=== PATIENT | male | born 2000 | race Two or more races ===

== ENCOUNTER 2022-10-02 10:07 | Outpatient (AMB) | payer OTHER, SELFPAY ==
--- NOTE | 2022-10-02 11:00 | MHC.PC.OV ---
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 Transferring care from [facility]. Medical records have not been requested and have not received. 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 Patient has history of autism and attention deficit disorder. He comes to the office with his mother. Patient is partially independent, does not prefer to drive. He goes to [facility], [facility] Medical History (Updated 10/03/22 @ 12:27 by Josue Mcarthur MD) ADHD (attention deficit hyperactivity disorder) Autism Scoliosis Surgical History (Updated 10/02/22 @ 11:11 by Lolis Vogt Coleen) History of surgery Family History Mother Mental health disorder Social History Housing: Apartment Alcohol intake: current Alcohol intake frequency: holidays/special occasions only Patient Tobacco Use Status: Never used Tobacco e-Cigarette/Vaping Use: Never Used Second Hand Smoke Exposure: No service: No Current occupational status: disabled Cognitive needs: No Hearing needs: No Vision needs: Yes (glasses) Questionnaire PHQ-9 Over the last 2 weeks, how often have you been bothered by any of the following problems? 1. Little interest or pleasure in doing things: not at all 2. Feeling down, depressed, or hopeless: not at all 3. Trouble falling or staying asleep, or sleeping too much: not at all 4. Feeling tired or having little energy: not at all 5. Poor appetite or overeating: not at all 6. Feeling bad about yourself - or that you are a failure or have let yourself or your family down: not at all 7. Trouble concentrating on things, such as reading the newspaper or watching television: not at all 8. Moving or speaking so slowly that other people could have noticed. Or the opposite - being so fidgety or restless that you have been moving around a lot more than usual: not at all 9. Thoughts that you would be better off or of hurting yourself in some way: not at all Total score: 0 Depression Screening Interpretation: Negative Source: Developed by Drs. Ervin Martínez, Marsha Joseph, Napoleon Cole and colleagues, with an educational jayesh from [employer]. Thrive Questionnaire Date Thrive assessed: 10/02/22 I am a: Patient What is your living situation today?: I have a steady place to live Within the past 12 months, did the food you bought not last and you didn't have the money to get more?: Never true Within the past 12 months, did you worry whether your food would run out before you got money to buy more?: Never true Do you have trouble paying for medicines?: No Do you have trouble getting transportation to medical appointments?: No Do you have trouble paying your heating and electricity bill?: No Do you have trouble taking care of your child, family member or friend?: No Do you have trouble with day-to-day activities such as bathing, preparing meals, shopping, managing finances, etc.?: No Are you currently unemployed and looking for a job?: No Are you interested in more education?: No Currently or been in a relationship where the following occur: no concerns reported AUDIT C Alcohol Use Questionnaire (AUDIT-C) 1. How often do you have a drink containing alcohol?: Monthly or less 2. How many drinks containing alcohol do you have on a typical day when you are drinking?: 1 or 2 Total Score: 1 ELDA-7 AMB Questionnaire ELDA-7 Date ELDA - 7 assessed: 10/02/22 Feeling nervous, anxious, or on edge: 0 = Not at all Not being able to stop or control worryin = Not at all Worrying too much about different things: 0 = Not at all Trouble relaxin = Not at all Being so restless that it is hard to sit still: 0 = Not at all Becoming easily annoyed or irritable: 0 = Not at all Feeling afraid as if something awful might happen: 0 = Not at all Total ELDA-7 score (0-4 normal; 5-9 mild; 10-14 moderate; 15-21 severe): 0 Source: Developed by Drs. Ervin Martínez, Marsha Joseph, Napoleon Cole and colleagues, with an educational jayesh from [employer]. Physical exam (Primary Care) Vital Signs: Last Vital Signs Pulse 81 10/02/22 11:02 BP 100/62 10/02/22 11:02 Pulse Ox 97 10/02/22 11:02 Oxygen Delivery Method Room Air 10/02/22 11:02 BMI result Body Mass Index 21.1 Tobacco/Smoking Status: Tobacco use Status Tobacco use date assessed 10/02/22 10/02/22 11:14 Patient Tobacco Use Status Never used Tobacco 10/02/22 11:14 e-Cigarette/Vaping Use Never Used 10/02/22 11:14 PHQ-9: PHQ-9 Score PHQ-9: Total score 0 10/02/22 11:14 Depression Screening Interpretation: Negative Thrive Assessment: Date of Thrive Assessment Date Thrive assessed 10/02/22 10/02/22 11:14 Currently or been in a relationship where the following occur: no concerns reported Const Other: Alert and oriented. Patient answers questions appropriately but prefers to be silent. General: cooperative, healthy appearing and comfortable HENMT Head: Yes normal to inspection and Yes atraumatic Eyes General: appearance normal, both eyes and all related structures Neck Neck: Yes normal visual inspection and Yes full ROM Chest Chest palpation & inspection: normal inspection of the chest Resp Effort & Inspection: normal respiratory effort Auscultation: clear to auscultation bilaterally Cardio Jugular venous distension: no JVD Palpation: normal PMI Rate: regular rate Heart sounds: S1 normal heart sound present and S2 normal heart sound present GI Palpation (GI): Soft to palpation and No hepatosplenomegaly present Extrem General: Yes normal to inspection and Yes full ROM Assessment and Plan Assessment & Plan (1) ADHD (attention deficit hyperactivity disorder): Code(s): F90.9 - Attention-deficit hyperactivity disorder, unspecified type Plan: Continue Focalin XR as ordered by his provider . (2) Autism: Code(s): F84.0 - Autistic disorder Plan: Condition is stable. (3) Scoliosis: Code(s): M41.9 - Scoliosis, unspecified Plan: Condition is stable. (4) Annual physical exam: Code(s): Z00.00 - Encounter for general adult medical examination without abnormal findings Plan: Blood work has been ordered will call with results. Orders: Orders Basic Metabolic Panel 10/02/22 E78.00 - Pure hypercholesterolemia, unspecified Lipid Panel 10/02/22 E78.00 - Pure hypercholesterolemia, unspecified Liver Panel 10/02/22 E78.00 - Pure hypercholesterolemia, unspecified Thyroid Stimulating Hormone 10/02/22 E78.00 - Pure hypercholesterolemia, unspecified Complete Blood Count no Diff 10/02/22 E78.00 - Pure hypercholesterolemia, unspecified UA and rflx microscopic 10/02/22 E78.00 - Pure hypercholesterolemia, unspecified Coding Level of Care Code New Pt Prev Care 18-39yr([id number] Diagnoses ADHD (attention deficit hyperactivity disorder) F90.9 Autism F84.0 Scoliosis M41.9 Annual physical exam Z00.00
[2022-10-02 11:02] VITALS: BP 100/62; PULSE 81; O2SAT 97; BMI 21.1
== END 2022-10-02 11:38 | disposition home or self-care (01) ==
PROVIDERS: PCP Internal Medicine; Visit Provider Internal Medicine
DX: F90.9 Attention-deficit hyperactivity disorder, unspecified type (principal); F84.0 Autistic disorder; M41.9 Scoliosis, unspecified; Z00.00 Encounter for general adult medical examination without abnormal findings
CPT/HCPCS: 99385

== ENCOUNTER 2022-10-10 08:55 | Outpatient (REF) | payer OTHER, SELFPAY ==
[2022-10-10 09:39] LABS: Hematocrit 49.9 % (42.0-52.0); Mean Corpuscular HGB Conc 32.1 g/dl (31.0-36.0); Mean Corpuscular Hemoglobin 29.5 pg (27.0-33.0); Mean Corpuscular Volume 91.9 fL (80.0-98.0); Mean Platelet Volume 11.4 fL (9.4-12.4); Platelet Count 132 X10*3/uL (160-400); Red Blood Count 5.43 X10*6/uL (4.60-5.80); Red Cell Distribution Width 11.8 % (11.0-16.0); White Blood Count 4.9 X10*3/uL (4.8-10.8)
[2022-10-10 10:11] LABS: Alanine Aminotransferase 18 U/L (0-40); Albumin Level 4.5 g/dL (3.5-5.0); Alkaline Phosphatase 97 U/L (39-117); Anion Gap 10 (12-20); Aspartate Amino Transferase 17 U/L (5-37); Bilirubin Direct 0.2 mg/dL (0.0-0.5); Bilirubin Total 0.5 mg/dL (0.0-1.0); Blood Urea Nitrogen 10 mg/dL (9-16); Calcium 9.9 mg/dL (8.4-10.2); Carbon Dioxide 30 mmol/L (22-29); Chloride 105 mmol/L (96-108); Cholesterol 195 mg/dL; Estimated Glomerular Filt Rate > 60; Glucose Random 89 mg/dL (60-115); HDL Cholesterol 60 mg/dL; LDL Cholesterol Calculated 125 mg/dl; Potassium 4.3 mmol/L (3.3-5.1); Sodium 141 mmol/L (135-145); Total Protein 7.6 g/dL (6.5-8.0); Triglycerides 52 mg/dL
[2022-10-10 10:26] LABS: Thyroid Stimulating Hormone 0.84 uIU/mL (0.32-4.0)
[2022-10-10 10:47] LABS: Appearance Urine Turbid; Color Urine Yellow; Glucose Urine UA Negative (Negative); Leukocyte Esterase Urine Negative (Negative); Nitrite Urine Negative (Negative); PH 7.5 (5.0-9.0); Specific Gravity - Urine 1.015 (1.005-1.025); Urine Blood Negative (Negative); Urine Ketones Negative (Negative); Urine Protein Negative (Neg-Trace)
== END 2022-10-10 08:56 | disposition home or self-care (01) ==
LOC: HO.LAB 08:55
PROVIDERS: PCP Internal Medicine; Visit Provider Internal Medicine
DX: E78.00 Pure hypercholesterolemia, unspecified (principal)
CPT/HCPCS: 36415; 80048; 80061; 80076; 81003; 84443; 85027

== ENCOUNTER 2023-03-27 07:24 | Outpatient (REF) | payer OTHER, SELFPAY | END 2023-03-27 07:25 | disposition home or self-care (01) | LOC: HO.LAB 07:24 | PROVIDERS: PCP Internal Medicine; Visit Provider Internal Medicine | DX: D69.6 Thrombocytopenia, unspecified (principal) | CPT/HCPCS: 36415; 85027 ==

== ENCOUNTER 2023-10-08 09:56 | Outpatient (AMB) | payer OTHER, SELFPAY ==
--- NOTE | 2023-10-08 10:32 | A.OFFPC_ITS ---
Vital Signs 10/08/23 10:34 Height 5 ft 5 in Weight 133 lb 6 oz BMI 22.2 BP 100/62 Blood Pressure Location Lt brachial Position Sitting Pulse 74 Pulse Source Pulse Oximeter Pulse Oximetry (%) 96 Oxygen Delivery Method Room Air Intake Visit Reasons: pe Intake Note: Patient is here today for a physical. Business Office Technology Instructor Required: No Director Correctional Agency: Present Accompanied by: Mother Allergies No Known Allergies Allergy (Verified 10/08/23 11:13) Medication List - Last Reconciled 10/08/23 by Josue Mcarthur MD carbamide peroxide 6.5% (Debrox) 5 drps otic (ear) left DAILY 4 days dexmethylphenidate ER (Focalin XR) 20 mg PO QAM Tobacco use date assessed: 10/08/23 Dental Screening Dental Screen Date: 10/08/23 Did you have a dental visit in the last 12 months?: Yes Did you have a dental problem in the last 6 months where you did not have access to dental care?: No Was dental information given to patient?: Patient has dentist HPI pe HPI Details 23-year-old male presents to the office for an annual physical. PFSH Medical History Scoliosis ADHD (attention deficit hyperactivity disorder) Autism Surgical History History of surgery Family History Mother Mental health disorder Social History Housing: Apartment Alcohol intake: current Alcohol intake frequency: holidays/special occasions only Patient Tobacco Use Status: Never used Tobacco e-Cigarette/Vaping Use: Never Used Second Hand Smoke Exposure: No service: No Current occupational status: disabled Cognitive needs: No Hearing needs: No Vision needs: Yes (glasses) Questionnaire PHQ-9 Over the last 2 weeks, how often have you been bothered by any of the following problems? 1. Little interest or pleasure in doing things: not at all 2. Feeling down, depressed, or hopeless: not at all 3. Trouble falling or staying asleep, or sleeping too much: not at all 4. Feeling tired or having little energy: not at all 5. Poor appetite or overeating: not at all 6. Feeling bad about yourself - or that you are a failure or have let yourself or your family down: not at all 7. Trouble concentrating on things, such as reading the newspaper or watching television: not at all 8. Moving or speaking so slowly that other people could have noticed. Or the opposite - being so fidgety or restless that you have been moving around a lot more than usual: not at all 9. Thoughts that you would be better off or of hurting yourself in some way: not at all Total score: 0 Depression Screening Interpretation: Negative Depression Screening Done: Yes Source: Developed by Drs. Ervin Martínez, Marsha Joseph, Napoleon Cole and colleagues, with an educational jayesh from [employer]. Thrive Questionnaire Date Thrive assessed: 10/08/23 I am a: Patient What is your living situation today?: I have a steady place to live Within the past 12 months, did the food you bought not last and you didn't have the money to get more?: Never true Within the past 12 months, did you worry whether your food would run out before you got money to buy more?: Never true Do you have trouble paying for medicines?: No Do you have trouble getting transportation to medical appointments?: No Do you have trouble paying your heating and electricity bill?: No Do you have trouble taking care of your child, family member or friend?: No Do you have trouble with day-to-day activities such as bathing, preparing meals, shopping, managing finances, etc.?: No Are you currently unemployed and looking for a job?: No Are you interested in more education?: No Currently or been in a relationship where the following occur: No concerns reported THRIVE Score: 0 AUDIT C Alcohol Use Questionnaire (AUDIT-C) 1. How often do you have a drink containing alcohol?: Monthly or less 2. How many drinks containing alcohol do you have on a typical day when you are drinking?: 1 or 2 Total Score: 1 ELDA-7 AMB Questionnaire ELDA-7 Date ELDA - 7 assessed: 10/08/23 Feeling nervous, anxious, or on edge: 0 = Not at all Not being able to stop or control worryin = Not at all Worrying too much about different things: 0 = Not at all Trouble relaxin = Not at all Being so restless that it is hard to sit still: 0 = Not at all Becoming easily annoyed or irritable: 0 = Not at all Feeling afraid as if something awful might happen: 0 = Not at all Total ELDA-7 score (0-4 normal; 5-9 mild; 10-14 moderate; 15-21 severe): 0 Source: Developed by Drs. Ervin Martínez, Marsha Joseph, Napoleon Cole and colleagues, with an educational jayesh from [employer]. Physical exam (Primary Care) Vital Signs: Last Vital Signs Pulse 74 10/08/23 10:34 BP 100/62 10/08/23 10:34 Pulse Ox 96 10/08/23 10:34 Oxygen Delivery Method Room Air 10/08/23 10:34 BMI result Body Mass Index 22.2 Tobacco/Smoking Status: Tobacco use Status Tobacco use date assessed 10/08/23 10/08/23 10:38 Patient Tobacco Use Status Never used Tobacco 10/08/23 10:38 e-Cigarette/Vaping Use Never Used 10/08/23 10:38 PHQ-9: PHQ-9 Score PHQ-9: Total score 0 10/08/23 10:38 Depression Screening Interpretation: Negative Thrive Assessment: Date of Thrive Assessment Date Thrive assessed 10/08/23 10/08/23 10:38 Currently or been in a relationship where the following occur: No concerns reported Const General: cooperative and healthy appearing Nutritional Appearance: well nourished Orientation/consciousness: patient oriented x3 Limitations: no limitations HENMT Head: Yes normal to inspection Eyes General: appearance normal, both eyes and all related structures Neck Neck: Yes normal visual inspection Chest Chest palpation & inspection: normal palpation of entire chest wall Resp Effort & Inspection: normal respiratory effort Neuro General: patient oriented x3 Assessment and Plan Assessment & Plan (1) Thrombocytopenia: Code(s): D69.6 - Thrombocytopenia, unspecified Plan: Blood work ordered. (2) ADHD (attention deficit hyperactivity disorder): Code(s): F90.9 - Attention-deficit hyperactivity disorder, unspecified type (3) Autism: Code(s): F84.0 - Autistic disorder (4) Annual physical exam: Code(s): Z00.00 - Encounter for general adult medical examination without abnormal findings Plan: Blood work has been ordered. Will call with the results. Orders: Orders Basic Metabolic Panel Today D69.6 - Thrombocytopenia, unspecified, F84.0 - Autistic disorder, F90.9 - Attention-deficit hyperactivity disorder, unspecified type Complete Blood Count no Diff Today D69.6 - Thrombocytopenia, unspecified, F84.0 - Autistic disorder, F90.9 - Attention-deficit hyperactivity disorder, unspecified type Thyroid Stimulating Hormone Today D69.6 - Thrombocytopenia, unspecified, F84.0 - Autistic disorder, F90.9 - Attention-deficit hyperactivity disorder, unspecified type Lipid Panel Today D69.6 - Thrombocytopenia, unspecified, F84.0 - Autistic disorder, F90.9 - Attention-deficit hyperactivity disorder, unspecified type Liver Panel Today D69.6 - Thrombocytopenia, unspecified, F84.0 - Autistic disorder, F90.9 - Attention-deficit hyperactivity disorder, unspecified type UA and rflx microscopic Today D69.6 - Thrombocytopenia, unspecified, F84.0 - Autistic disorder, F90.9 - Attention-deficit hyperactivity disorder, unspecified type Medications: New carbamide peroxide 6.5% (Debrox) 5 drps otic (ear) left DAILY 15 mL 0RF 4 days Coding Level of Care Code Est Pt Prev Care 18-39y(88016) Diagnoses Thrombocytopenia D69.6 ADHD (attention deficit hyperactivity disorder) F90.9 Autism F84.0 Annual physical exam Z00.00
[2023-10-08 10:34] VITALS: BP 100/62; PULSE 74; O2SAT 96; BMI 22.2
== END 2023-10-08 11:14 | disposition home or self-care (01) ==
PROVIDERS: PCP Internal Medicine; Visit Provider Internal Medicine
DX: D69.6 Thrombocytopenia, unspecified (principal); F90.9 Attention-deficit hyperactivity disorder, unspecified type; F84.0 Autistic disorder; Z00.00 Encounter for general adult medical examination without abnormal findings
CPT/HCPCS: 99395

== ENCOUNTER 2023-10-17 07:48 | Outpatient (REF) | payer OTHER, SELFPAY ==
[2023-10-17 08:11] LABS: Hematocrit 45.9 % (42.0-52.0); Hemoglobin 15.4 g/dl (14.0-18.0); Mean Corpuscular HGB Conc 33.6 g/dl (31.0-36.0); Mean Corpuscular Hemoglobin 29.9 pg (27.0-33.0); Mean Corpuscular Volume 89.1 fL (80.0-98.0); Platelet Count 139 X10*3/uL (160-400); Red Blood Count 5.15 X10*6/uL (4.60-5.80); Red Cell Distribution Width 11.7 % (11.0-16.0); White Blood Count 4.3 X10*3/uL (4.8-10.8)
[2023-10-17 08:47] LABS: Alanine Aminotransferase 30 U/L (0-40); Albumin Level 4.5 g/dL (3.5-5.0); Alkaline Phosphatase 89 U/L (39-117); Anion Gap 13 (12-20); Aspartate Amino Transferase 23 U/L (5-37); Bilirubin Direct 0.2 mg/dL (0.0-0.5); Bilirubin Total 0.5 mg/dL (0.0-1.0); Blood Urea Nitrogen 14 mg/dL (9-16); Calcium 9.8 mg/dL (8.4-10.2); Carbon Dioxide 26 mmol/L (22-29); Chloride 104 mmol/L (96-108); Cholesterol 211 mg/dL (<200); Estimated Glomerular Filt Rate > 60; Glucose Random 93 mg/dL (60-115); HDL Cholesterol 59 mg/dL (>40); LDL Cholesterol Calculated 143 mg/dL (<100); Potassium 4.2 mmol/L (3.3-5.1); Sodium 139 mmol/L (135-145); Total Protein 7.5 g/dL (6.5-8.0); Triglycerides 48 mg/dL (<150)
[2023-10-17 08:53] LABS: Appearance Urine Cloudy; Color Urine Yellow; Glucose Urine UA Negative (Negative); Leukocyte Esterase Urine Negative (Negative); Nitrite Urine Negative (Negative); Urine Blood Negative (Negative); Urine Ketones Negative (Negative); Urine Protein Negative (Neg-Trace)
[2023-10-17 09:03] LABS: Thyroid Stimulating Hormone 0.74 uIU/mL (0.32-4.0)
== END 2023-10-17 07:49 | disposition home or self-care (01) ==
LOC: HO.LAB 07:48
PROVIDERS: PCP Internal Medicine; Visit Provider Internal Medicine
DX: D69.6 Thrombocytopenia, unspecified (principal); F90.9 Attention-deficit hyperactivity disorder, unspecified type; F84.0 Autistic disorder
CPT/HCPCS: 36415; 80048; 80061; 80076; 81003; 84443; 85027

== ENCOUNTER 2025-01-18 08:07 | Outpatient (AMB) | payer OTHER, SELFPAY ==
--- OUTSIDE RECORDS SUMMARY | 2025-01-18 08:20 | XMS_ITS | Encounter Summary ---
Author Organization [facility] Address [address] [place] [phone] Phone Care Team Providers Care Distributed Generation Project Manager Name Role Phone Elena Cabrera MD Primary Care Provider Unavailabl e Encounter Details Date Type Department Care Team (Late st Contact Info) Description 11/29/2010 Documentation [facility] [address] [place] [address] Family Medicine, Physician [address] [place], [place] [phone] Social History Tobacco Use Types Packs/Day Years Used Date Smoking Tobacco: Never Assessed Sex and Gender Information Value Date Recorded Sex Assigned at Not on file Legal Sex Male 4:55 PM EDT Gender Identity Not on file Sexual Orientation Not on file documented as of this encounter Plan of Treatment Not on file documented as of this encounter Visit Diagnoses Not on filedocumented in this encounter Care Teams Distributed Generation Project Manager Relationship Specialty Start Date End Date Elena Cabrera MD PCP - General 10/31/16 documented as of this encounter
--- OUTSIDE RECORDS SUMMARY | 2025-01-18 08:20 | XMS_ITS | Encounter Summary ---
Author Organization [facility] Address [address] [place] [phone] Phone Care Team Providers Care Samples And Repairs Preparer Name Role Phone Elena Cabrera MD Primary Care Provider Unavailabl e Encounter Details Date Type Department Care Team (Late st Contact Info) Description 12/26/2011 Documentation [facility] [address] [place] [address] Family Medicine, Physician [address] [place], [place] [phone] Social History Tobacco Use Types Packs/Day Years [...] on filedocumented in this encounter Care Teams Samples And Repairs Preparer Relationship Specialty Start Date End Date Elena Cabrera MD PCP - General 10/31/16 documented as of this encounter
--- OUTSIDE RECORDS SUMMARY | 2025-01-18 08:20 | XMS_ITS | Encounter Summary ---
Author Organization [facility] Address [address] [place] [phone] Phone Care Team Providers Care Cotton Cleaner Name Role Phone Elena Cabrera MD Primary Care Provider Unavailabl e Encounter Details Date Type Department Care Team (Late st Contact Info) Description 12/26/2011 Documentation [facility] [address] [place] [address] Family Medicine, Physician [address] [place], [place] [phone] Social History Tobacco Use Types Packs/Day Years [...] on filedocumented in this encounter Care Teams Cotton Cleaner Relationship Specialty Start Date End Date Elena Cabrera MD PCP - General 10/31/16 documented as of this encounter
--- OUTSIDE RECORDS SUMMARY | 2025-01-18 08:20 | XMS_ITS | Encounter Summary ---
Author Organization [facility] Address [address] [place] [phone] Phone Care Team Providers Care Channeler Runner Name Role Phone Elena Cabrera MD Primary Care Provider Unavailabl e Encounter Details Date Type Department Care Team (Late st Contact Info) Description 02/06/2014 Documentation [facility] [address] [place] [address] Family Medicine, Physician [address] [place], [place] [phone] Social History Tobacco Use Types Packs/Day Years Used Date Smoking Tobacco: Never Comments:Never smoker Sex and Gender Information Value Date Recorded Sex Assigned at Not on file Legal Sex Male 4:55 PM EDT Gender Identity Not on file Sexual Orientation Not on file documented as of this encounter Plan of Treatment Not on file documented as of this encounter Visit Diagnoses Not on filedocumented in this encounter Care Teams Channeler Runner Relationship Specialty Start Date End Date Elena Cabrera MD PCP - General 10/31/16 documented as of this encounter
--- OUTSIDE RECORDS SUMMARY | 2025-01-18 08:20 | XMS_ITS | Encounter Summary ---
Author Organization [facility] Address [address] [place] [phone] Phone Care Team Providers Care Promotor Group Ticket Sales Name Role Phone Elena Cabrera MD Primary Care Provider Unavailabl e Encounter Details Date Type Department Care Team (Late st Contact Info) Description 12/26/2011 Documentation [facility] [address] [place] [address] Family Medicine, Physician [address] [place], [place] [phone] Social History Tobacco Use Types Packs/Day Years [...] on filedocumented in this encounter Care Teams Promotor Group Ticket Sales Relationship Specialty Start Date End Date Elena Cabrera MD PCP - General 10/31/16 documented as of this encounter
--- OUTSIDE RECORDS SUMMARY | 2025-01-18 08:20 | XMS_ITS | Clinical Summary ---
Author Organization [facility] Address [address] [place] [phone] Phone Care Team Providers Care Drum Plater Name Role Phone Elena Cabrera MD Primary Care Provider Unavailabl e Immunizations Immunization Administration Dates Next Due DTaP 5 07/11/2003, 0,1999, 000,1999 HPV, Quadrivalent 02/03/2014 Hep B, ped/adol 1999,1999,1999 Hib (PRP-T) 1999, 0,1999, 000 IPV 07/11/2003, 1,1999, 000 Influenza Split 01/11/2013, 2,11/28/2010, 010 Influenza, injectable, quadrivalent 02/03/2014 MMR 07/11/2003,12/08/2000 Meningococcal Conj (Menactra) MCV4P 12/25/2011 Pneumococcal Conjugate 12/08/2000,2000,04/14/2000, 000,1999 Tdap 12/25/2011 Varicella 12/25/2011,10/06/2000 Family History Relation Name Status Comments Father Alive Father: Congeni toya heart disease Maternal Grandmother Materna l grandmother: Diabetes mellitus, Seizure disorder, Migraines, Asthma Mother Alive Mother: Alive a nd well, Diabetes mellitus, Obesity Other , Family histor y of *Thrombophilia, No family history of Hyperlipidemia, No family history of Deafness, Family history of *Heart Disease, Family history of Cancer, unknown, No family history of Developmental dislocation of hip, No family history of *CVA/Stroke, Family history of ADD/ADHD, No family history of *Sudden /AK under 55 Sister Sister: Strabis mus Social History Tobacco Use Types Packs/Day Years Used Date Smoking Tobacco: Never Comments:Never smoker Sex and Gender Information Value Date Recorded Sex Assigned at Not on file Legal Sex Male 4:55 PM EDT Gender Identity Not on file Sexual Orientation Not on file Last Filed Vital Signs Vital Sign Reading Time Taken Comments Blood Pressure 118/72 02/03/2014 12:00 AM EST Pulse 96 11/28/2010 12:00 AM EDT Temperature 35.4 C (95.8 F) 11/28/2010 12:00 AM EDT Respiratory Rate - - Oxygen Saturation - - Inhaled Oxygen Concentration - - Weight 40.1 kg (88 lb 6.4 oz) 02/03/2014 12:00 A M EST Height 156.7 cm (5' 1.7 ) 02/03/2014 12:00 AM ES T Body Mass Index 16.33 02/03/2014 12:00 AM EST Plan of Treatment Health Maintenance Due Date Last Done Comments HPV Vaccines (2 - Male 2-dose series) 08/03/2014 02/03/2014 DTaP,Tdap,and Td Vaccines (6 - Td or Tdap) 12/24/2021 12/25/2011, 07/11/2003, 1999, Additional history exists Influenza Vaccines (#1) 2024 02/04/20 14, 01/11/2013, 12/25/2011, Additional history exists COVID-19 Vaccine ( season) 2024 HIB Vaccines Aged Out 1999, 09/21, 1999, Additional history exists No longer eligible based on patient's age to complete this topic Hepatitis B Vaccines Completed 1999, 1999, 1999 Pneumococcal Vaccine Completed 12/08/2000, 10/06/2000, 04/14/2000, Additional history exists IPV Vaccines Completed 07/11/2003, 11/21, 1999, Additional history exists MMR Vaccines Completed 07/11/2003, 12/08/2000 Meningococcal Vaccine Aged Out 12/25/2011 No shyanne sam eligible based on patient's age to complete this topic Varicella Vaccines Completed 12/25/2011, 10/06/2000 Hepatitis A Vaccines Aged Out No long er eligible based on patient's age to complete this topic Men B Vaccine Aged Out No longer elig ible based on patient's age to complete this topic Care Teams Drum Plater Relationship Specialty Start Date End Date Elena Cabrera MD PCP - General 10/31/16
--- OUTSIDE RECORDS SUMMARY | 2025-01-18 08:20 | XMS_ITS | Encounter Summary ---
Author Organization [facility] Address [address] [place] [phone] Phone Care Team Providers Care Field Agronomist Name Role Phone Elena Cabrera MD Primary Care Provider Unavailabl e Encounter Details Date Type Department Care Team (Late st Contact Info) Description 01/12/2013 Documentation [facility] [address] [place] [address] Family Medicine, Physician [address] [place], [place] [phone] Social History Tobacco Use Types Packs/Day Years [...] on filedocumented in this encounter Care Teams Field Agronomist Relationship Specialty Start Date End Date Elena Cabrera MD PCP - General 10/31/16 documented as of this encounter
--- OUTSIDE RECORDS SUMMARY | 2025-01-18 08:20 | XMS_ITS | Encounter Summary ---
Author Organization [facility] Address [address] [place] [id number] Phone Care Team Providers Care Machine Castings Plasterer Name Role Phone Elena Cabrera MD Primary Care Provider Unavailabl e Encounter Details Date Type Department Care Team (Late st Contact Info) Description 04/26/2014 Documentation [facility] [address] [place] [address] Family Medicine, Physician [address] [place], [place] [phone] Social History Tobacco Use Types Packs/Day Years [...] on filedocumented in this encounter Care Teams Machine Castings Plasterer Relationship Specialty Start Date End Date Eelna Cabrera MD PCP - General 10/31/16 documented as of this encounter
--- OUTSIDE RECORDS SUMMARY | 2025-01-18 08:20 | XMS_ITS | Encounter Summary ---
Author Organization [facility] Address [address] [place] [address] Phone Care Team Providers Care Gym Teacher Name Role Phone Elena Cabrera MD Primary Care Provider Unavailabl e Encounter Details Date Type Department Care Team (Late st Contact Info) Description 02/06/2014 Documentation [facility] Family [facility] [address] [place] [address] Family Medicine, Physician [address] [place], [place] [phone] Social History Tobacco Use Types Packs/Day Years [...] on filedocumented in this encounter Care Teams Gym Teacher Relationship Specialty Start Date End Date Elena Cabrera MD PCP - General 10/31/16 documented as of this encounter
--- OUTSIDE RECORDS SUMMARY | 2025-01-18 08:20 | XMS_ITS | Encounter Summary ---
Author Organization [facility] Address [address] [place] [address] Phone Care Team Providers Care Tests Superintendent Name Role Phone Elena Cabrera MD Primary Care Provider Unavailabl e Encounter Details Date Type Department Care Team (Late st Contact Info) Description 12/26/2011 Documentation [facility] Family [facility] [address] [place] [address] Family Medicine, Physician [address] [place], [place] [phone] Social History Tobacco Use Types Packs/Day Years [...] on filedocumented in this encounter Care Teams Tests Superintendent Relationship Specialty Start Date End Date Elena Cabrera MD PCP - General 10/31/16 documented as of this encounter
--- OUTSIDE RECORDS SUMMARY | 2025-01-18 08:20 | XMS_ITS | Encounter Summary ---
Author Organization [facility] Address [address] [place] [phone] Phone Care Team Providers Care Decorator Street And Building Name Role Phone Elena Cabrera MD Primary Care Provider Unavailabl e Encounter Details Date Type Department Care Team (Late st Contact Info) Description 11/06/2016 Conversion Encounter [facility] - [address] [id number] Social History Tobacco Use Types Packs/Day Years [...] on filedocumented in this encounter Care Teams Decorator Street And Building Relationship Specialty Start Date End Date Elena Cabrera MD PCP - General 10/31/16 documented as of this encounter
--- OUTSIDE RECORDS SUMMARY | 2025-01-18 08:20 | XMS_ITS | Encounter Summary ---
Author Organization [facility] Address [address] [place] [address] Phone Care Team Providers Care Digital Content Producer Name Role Phone Elena Cabrera MD Primary Care Provider Unavailabl e Encounter Details Date Type Department Care Team (Late st Contact Info) Description 11/29/2010 Documentation [facility] [address] [place] [address] Family Medicine, Physician [address] [place], [place] [phone] Social History Tobacco Use Types Packs/Day Years [...] on filedocumented in this encounter Care Teams Digital Content Producer Relationship Specialty Start Date End Date Elena Cabrera MD PCP - General 10/31/16 documented as of this encounter
--- OUTSIDE RECORDS SUMMARY | 2025-01-18 08:20 | XMS_ITS | Encounter Summary ---
Author Organization [facility] Address [address] [place] [address] Phone Care Team Providers Care Marzipan Maker Name Role Phone Elena Cabrera MD Primary Care Provider Unavailabl e Encounter Details Date Type Department Care Team (Late st Contact Info) Description 10/24/2014 Documentation [facility] Family [facility] [address] [place] [address] Family Medicine, Physician [address] [place], [place] [phone] Social History Tobacco Use Types Packs/Day Years [...] on filedocumented in this encounter Care Teams Marzipan Maker Relationship Specialty Start Date End Date Elena Cabrera MD PCP - General 10/31/16 documented as of this encounter
--- NOTE | 2025-01-18 08:23 | A.OFFPC_ITS ---
Vital Signs 01/18/25 08:24 Height 5 ft 5 in Weight 138 lb 6 oz BMI 23.0 BP 100/64 Blood Pressure Location Lt brachial Position Sitting Pulse 61 Pulse Source Pulse Oximeter Temp 97.1 F Temp Source Temporal Artery Scan Pulse Oximetry (%) 96 Oxygen Delivery Method Room Air Intake Visit Reasons: annual exam Intake Note: Patient is here today for a physical. Senior Climate Advisor Required: No Banjo Repair Person: Present Accompanied by: Father Allergies No Known Allergies Allergy (Verified 01/18/25 08:23) Tobacco use date assessed: 01/18/25 Dental Screening Dental Screen Date: 01/18/25 Did you have a dental visit in the last 12 months?: Yes Did you have a dental problem in the last 6 months where you did not have access to dental care?: No Was dental information given to patient?: Patient has dentist [facility] Medical History Scoliosis ADHD (attention deficit hyperactivity disorder) Autism Surgical History History of surgery Family History Mother Mental health disorder Social History Housing: Apartment Alcohol intake: current Alcohol intake frequency: holidays/special occasions only Patient Tobacco Use Status: Never used Tobacco e-Cigarette/Vaping Use: Never Used Second Hand Smoke Exposure: No service: No Current occupational status: disabled Cognitive needs: No Hearing needs: No Vision needs: Yes (glasses) Questionnaire PHQ-9 Over the last 2 weeks, how often have you been bothered by any of the following problems? 1. Little interest or pleasure in doing things: not at all 2. Feeling down, depressed, or hopeless: not at all 3. Trouble falling or staying asleep, or sleeping too much: not at all 4. Feeling tired or having little energy: not at all 5. Poor appetite or overeating: not at all 6. Feeling bad about yourself - or that you are a failure or have let yourself or your family down: not at all 7. Trouble concentrating on things, such as reading the newspaper or watching television: not at all 8. Moving or speaking so slowly that other people could have noticed. Or the opposite - being so fidgety or restless that you have been moving around a lot more than usual: not at all 9. Thoughts that you would be better off or of hurting yourself in some way: not at all Total score: 0 Depression Screening Interpretation: Negative Depression Screening Done: Yes Source: Developed by Drs. Ervin Martínez, Marsha Joseph, Napoleon Cole and colleagues, with an educational jayesh from [employer]. Thrive Questionnaire Date Thrive assessed: 01/11/25 I am a: Patient What is your living situation today?: I have a steady place to live Within the past 12 months, did the food you bought not last and you didn't have the money to get more?: Never true Within the past 12 months, did you worry whether your food would run out before you got money to buy more?: Never true Do you have trouble paying for medicines?: No Do you have trouble getting transportation to medical appointments?: No Do you have trouble paying your heating and electricity bill?: No Do you have trouble taking care of your child, family member or friend?: No Do you have trouble with day-to-day activities such as bathing, preparing meals, shopping, managing finances, etc.?: No Are you currently unemployed and looking for a job?: No Are you interested in more education?: No Please select the resources that you would like help with: None Currently or been in a relationship where the following occur: No concerns reported THRIVE Score: 0 AUDIT C Alcohol Use Questionnaire (AUDIT-C) 1. How often do you have a drink containing alcohol?: Never Total Score: 0 ELDA-7 AMB Questionnaire ELDA-7 Date ELDA - 7 assessed: 01/18/25 Feeling nervous, anxious, or on edge: 0 = Not at all Not being able to stop or control worryin = Not at all Worrying too much about different things: 0 = Not at all Trouble relaxin = Not at all Being so restless that it is hard to sit still: 0 = Not at all Becoming easily annoyed or irritable: 0 = Not at all Feeling afraid as if something awful might happen: 0 = Not at all Total ELDA-7 score (0-4 normal; 5-9 mild; 10-14 moderate; 15-21 severe): 0 Source: Developed by Drs. Ervin Martínez, Marsha Joseph, Napoleon Cole and colleagues, with an educational jayesh from [employer]. Physical exam (Primary Care) Vital Signs: Last Vital Signs Temp 97.1 F 01/18/25 08:24 Pulse 61 01/18/25 08:24 BP 100/64 01/18/25 08:24 Pulse Ox 96 01/18/25 08:24 Oxygen Delivery Method Room Air 01/18/25 08:24 BMI result Body Mass Index 23.0 Tobacco/Smoking Status: Tobacco use Status Tobacco use date assessed 01/18/25 01/18/25 08:27 Patient Tobacco Use Status Never used Tobacco 01/18/25 08:27 e-Cigarette/Vaping Use Never Used 01/18/25 08:27 PHQ-9: PHQ-9 Score PHQ-9: Total score 0 01/18/25 08:27 Depression Screening Interpretation: Negative Thrive Assessment: Date of Thrive Assessment Date Thrive assessed 01/11/25 01/18/25 08:27 Currently or been in a relationship where the following occur: No concerns reported Coding Level of Care Code Est Pt Prev Care [id number]) Diagnoses ADHD (attention deficit hyperactivity disorder) F90.9 Thrombocytopenia D69.6 Annual physical exam Z00.00 Assessment & Plan Assessment & Plan (1) ADHD (attention deficit hyperactivity disorder): Code(s): F90.9 - Attention-deficit hyperactivity disorder, unspecified type Category: Medical Plan: History of Present Illness - The patient is a 24-year-old male presenting for a physical. - He has ADD and ADHD managed by Dr. Blanco at [facility], who prescribes his medication, taken once daily. - The patient also has low blood pressure, which is not currently a concern. - Previous blood work in September of last year was normal, and a repeat test is planned without fasting. 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 Review of Systems - Cardiovascular: Denies chest pain or palpitations. - Gastrointestinal: Denies abdominal pain. - Genitourinary: Denies dysuria or urinary frequency. Physical Exam General: Cooperative and healthy appearing Nutritional Appearance: Well nourished Orientation/consciousness: Patient oriented x3 Limitations: No limitations Head: Normal to inspection General: Appearance normal, both eyes and all related structures Neck: Normal visual inspection Chest: Normal palpation of entire chest wall Respiratory: Patient instructed to take deep breaths; no issues noted. ormal respiratory effort Neurology: Patient oriented x3 Results Plan - Maintain current medication for ADD as prescribed by Dr. Blanco. - Conduct blood work to evaluate anemia, kidney, and liver function without fasting. - Observe blood pressure levels, though no immediate action is required. Discussion Notes I discussed with the patient the importance of continuing his current medication regimen for ADD as prescribed by Dr. Blanco. We also talked about the need to repeat blood work to monitor anemia, kidney, and liver function, which can be done without fasting. Additionally, I reassured the patient that his low blood pressure is not currently a concern but should be monitored. Patient Instructions - Continue taking your ADD medication as prescribed. - Go for blood work at your convenience; fasting is not required. - Keep an eye on your blood pressure, but no immediate action is needed. (2) Thrombocytopenia: Code(s): D69.6 - Thrombocytopenia, unspecified Category: Medical Plan: Condition is stable (3) Annual physical exam: Code(s): Z00.00 - Encounter for general adult medical examination without abnormal findings Category: Medical Plan: As above. Orders: Orders Basic Metabolic Panel Today D69.6 - Thrombocytopenia, unspecified, F90.9 - Attention-deficit hyperactivity disorder, unspecified type, Z00.00 - Encounter for general adult medical examination without abnormal findings Complete Blood Count no Diff Today D69.6 - Thrombocytopenia, unspecified, F90.9 - Attention-deficit hyperactivity disorder, unspecified type, Z00.00 - Encounter for general adult medical examination without abnormal findings Liver Panel Today D69.6 - Thrombocytopenia, unspecified, F90.9 - Attention- deficit hyperactivity disorder, unspecified type, Z00.00 - Encounter for general adult medical examination without abnormal findings Thyroid Stimulating Hormone Today D69.6 - Thrombocytopenia, unspecified, F90.9 - Attention-deficit hyperactivity disorder, unspecified type, Z00.00 - Encounter for general adult medical examination without abnormal findings UA and rflx microscopic Today D69.6 - Thrombocytopenia, unspecified, F90.9 - Attention-deficit hyperactivity disorder, unspecified type, Z00.00 - Encounter for general adult medical examination without abnormal findings
[2025-01-18 08:24] VITALS: BP 100/64; PULSE 61; TEMP 36.2; O2SAT 96; BMI 23.0
== END 2025-01-18 09:10 | disposition home or self-care (01) ==
LOC: HO.HMCH 08:08
PROVIDERS: PCP Internal Medicine; Visit Provider Internal Medicine
DX: Z00.00 Encounter for general adult medical examination without abnormal findings (principal); F90.9 Attention-deficit hyperactivity disorder, unspecified type; D69.6 Thrombocytopenia, unspecified

== ENCOUNTER → 2025-01-18 08:07 | Outpatient (BNVA) | payer OTHER, SELFPAY | PROVIDERS: PCP Internal Medicine; Visit Provider Internal Medicine | DX: Z00.00 Encounter for general adult medical examination without abnormal findings (principal); F90.9 Attention-deficit hyperactivity disorder, unspecified type; D69.6 Thrombocytopenia, unspecified | CPT/HCPCS: 99395 ==